=== PATIENT | male | born 2000 ===

== ENCOUNTER 2020-06-23 11:56 | Emergency (ER) | payer BC ==
[~2020-06-23] VITALS: Ht 175.3 cm; Wt 97.5 kg
[2020-06-23 12:05] VITALS: BP 137/78
== END 2020-06-23 13:56 | disposition home or self-care (01) ==
LOC: ER 11:56
DX: S16.1XXA Strain of muscle, fascia and tendon at neck level, initial encounter (principal); M25.512 Pain in left shoulder; V86.56XA Driver of dirt bike or motor/cross bike injured in nontraffic accident, initial encounter; Y93.89 Activity, other specified; Y92.89 Other specified places as the place of occurrence of the external cause; Y99.8 Other external cause status
CPT/HCPCS: 70450; 71101; 72125; 73030